=== PATIENT | male | born 1950 | race Caucasian/White ===

== ENCOUNTER 2019-11-03 19:15 | Emergency (ER) | payer MEDICARE, OTHER ==
[~2019-11-03] VITALS: Ht 172.7 cm; Wt 72.6 kg
[2019-11-03 19:27] VITALS: BP 140/81
[2019-11-03] MEDS ORDERED: NS 1000ML 1,000 ML IV STA ×2 (19:35→20:37)
--- NOTE | 2019-11-03 19:37 | ER.PDOC ---
General Chief Complaint: General Complaint Stated Complaint: CHEST PAIN Time seen by MD: 19:30 Source: patient, family Exam Limitations: intoxication History of Present Illness Initial Comments Patient states he had sharp midsubsternal CP about 1 hour ago. He has been drinking heavily and crying persistently x 2 hours. He states he wants to but adamantly denies any intent to harm himself. When asked directly if he would kill himself, he looked shocked and declared vehemently, "NO!" Timing/Duration: this afternoon, this evening Intent: Wants to escape (wants to , but denies any intent to kill or harm himself) Associated Symptoms: Depressed (longstanding history of depression) Allergies: Coded Allergies: No Known Allergies (Unverified , 11/03/19) Home Meds Reported Medications Levothyroxine Sodium (LEVOTHYROXINE SODIUM) 50 Mcg Tablet, 1 TAB PO DAILY, #30 TAB 5 Refills 11/03/19 Venlafaxine Hcl (EFFEXOR XR) 150 Mg Cap.er.24h, 150 MG PO QID, CAPSULE 11/03/19 Esomeprazole Magnesium (NEXIUM) 40 Mg Capsule.dr, 1 CAP PO DAILY, #30 CAP 5 Refills 11/03/19 Celecoxib (CELEBREX) 200 Mg Capsule, 1 CAP PO DAILY, #30 CAP 2 Refills 11/03/19 Valsartan/Hydrochlorothiazide (DIOVAN HCT 320-12.5 MG TAB) 1 Each Tablet, 1 TAB PO DAILY, #90 TAB 1 Refill 11/03/19 Ezetimibe/Simvastatin (VYTORIN 10-40 MG TABLET) 1 Each Tablet, 1 TAB PO QD for 30 Days, #30 TAB 0 Refills 11/03/19 Amlodipine Besylate (NORVASC) 5 Mg Tablet, 1 TAB PO DAILY, #30 TAB 5 Refills 11/03/19 Past Medical History Medical History: other (depression) Review of Systems Constitutional: no symptoms reported EENTM: no symptoms reported Respiratory: no symptoms reported Cardiovascular: no symptoms reported Gastrointestinal: no symptoms reported Musculoskeletal: no symptoms reported Skin: no symptoms reported Psychiatric/Neurological: depressed Physical Exam General Appearance: No acute distress, Alert (appears acutely intoxicated) Respiratory: lungs clear, normal breath sounds, no respiratory distress, no accessory muscle use Cardiovascular: Regular Rate, Rhythm Gastrointestinal: Normal Bowel Sounds, Non Tender Neurological/Psychiatric: Alert, Other (tearful, appears acutely intoxicated) Behavior/Eye Contact/Speech: Cooperative, Good Eye Contact Thoughts/Hallucinations: Normal Thought Pattern, No Apparent Hallucination Skin: Normal Color, Warm/Dry Results/Orders Results/Orders Orders - GONZÁLEZ OTTO DO Cbc With Auto Diff (11/03/19 19:35) Comprehensive Metabolic Panel (11/03/19 19:35) Creatine Kinase (11/03/19 19:35) Creatine Kinase Mb (11/03/19 19:35) Troponin I (11/03/19 19:35) Probnp B-Type [employer] (11/03/19 19:35) PT (11/03/19 19:35) Partial Thromboplastin Time. (11/03/19 19:35) Xr Chest 1v (11/03/19 19:35) Ekg-Routine (11/03/19 19:35) Saline Lock (11/03/19 19:35) Urinalysis (11/03/19 19:35) Alcohol(Ml) (11/03/19 19:35) Drug Scrn Med W Confirmation (11/03/19 19:35) 0.9 % Sodium Chloride (Ns 1000ml) (11/03/19 19:35) 0.9 % Sodium Chloride (Ns 1000ml) (11/03/19 20:37) Vital Signs Date Time Temp Pulse Resp B/P (MAP) Pulse Ox O2 Delivery O2 Flow Rate FiO2 11/03/19 20:29 98.4 86 18 128/65 (86) 97 Room Air 11/03/19 19:27 98.4 89 18 140/81 (100) 94 Room Air 11/03/19 19:27 98.4 89 18 11/03/19 19:27 98.4 89 18 94 Administered Medications Medications (Trade) Dose Ordered Sig/Hawa Route PRN Reason Start Time Stop Time Status Last Admin Dose Admin Sodium Chloride 1,000 ml @ 1,200 mls/hr Q50M STAT IV 11/03/19 19:35 11/03/19 20:24 UNV 11/03/19 19:45 1,200 MLS/HR Sodium Chloride 1,000 ml @ 1,200 mls/hr Q50M STAT IV 11/03/19 20:37 11/03/19 21:27 DC 11/03/19 20:43 1,200 MLS/HR Laboratory Tests Test 11/03/19 19:30 11/03/19 21:09 White Blood Count 7.6 10^3/uL (4.5-11.0) Red Blood Count 4.55 10^6/uL (4.50-5.90) Hemoglobin 14.2 g/dL (13.9-16.3) Hematocrit 41.7 % (37.0-53.0) Mean Corpuscular Volume 91.6 fL (78-100) Mean Corpuscular Hemoglobin 31.2 pg (26-34) Mean Corpuscular Hemoglobin Concent 34.1 g/dL (33-36.5) Red Cell Distribution Width 12.3 % (11.5-14.5) Platelet Count 256 10^3/uL (150-400) Mean Platelet Volume 10.2 fL (7.8-11.0) Neutrophils (%) (Auto) 73.9 % (41.0-85.0) Lymphocytes (%) (Auto) 20.8 % (24.0-44.0) L Monocytes (%) (Auto) 4.3 % (5.0-12.0) L Neutrophils # (Auto) 5.6 10^3/uL (1.8-7.7) Lymphocytes # (Auto) 1.59 10^3/uL1 (1.0-4.8) Monocytes # (Auto) 0.3 10^3/uL (0.3-0.8) Absolute Immature Granulocyte (auto 0.02 10^3 u/L (0-2) Absolute Eosinophils (auto) 0.0 10^3/uL (0.0-0.2) Immature Granulocytes % 0.30 % (0.00-0.50) Eosinophils % 0.4 % (0.0-5.0) Basophils % 0.3 % (0.0-0.2) H Basophils # 0.0 10^3/uL (0.0-0.1) Prothrombin Time 10.0 SEC (9.3-11.3) Prothrombin Time INR (Non-Therap) 1.0 Activated Partial Thromboplast Time 19.5 SEC (24.67-30.72) Sodium Level 139 mmol/L (132-145) Potassium Level 3.5 mmol/L (3.6-5.2) L Chloride Level 103.0 mmol/L (96-109) Carbon Dioxide Level 21.1 mmol/L (20.0-32) Anion Gap 18.4 Blood Urea Nitrogen 32 mg/dL (7-18) H Creatinine 1.35 mg/dL (0.59-1.40) Estimated GFR () 63.8 (>/=60) Est GFR (CKD-EPI)(Non-Afr [place]) 52.7 (>/=60) BUN/Creatinine Ratio 23.0 Glucose Level 198 mg/dL (70-110) H Calcium Level 8.8 mg/dL (8.4-10.5) Total Bilirubin 0.3 mg/dL (0.2-1.0) Aspartate Amino Transferase (AST) 25 U/L (0-35) Alanine Aminotransferase (ALT) 41 U/L (12-78) Alkaline Phosphatase 72 U/L (50-136) Total Creatine Kinase 149 U/L (39-308) Creatine Kinase MB 3.2 ng/mL (0.5-3.6) Troponin I < 0.02 ng/mL (0.00-0.05) Pro-B-Type Natriuretic Peptide 22 pg/mL (0-125) Total Protein 7.2 g/dL (6.4-8.2) Albumin 4.1 g/dL (3.4-5.0) Globulin 3.1 Serum Alcohol 206 mg/dL (0-50) H Urine Collection Type CCMS Urine Color YELLOW (YELLOW) Urine Appearance CLEAR (CLEAR) Urine Bilirubin NEGATIVE MG/DL (NEGATIVE) Urine Ketones NEGATIVE (NEGATIVE) Urine Specific [place] 1.025 (1.005-1.035) Urine pH 5.5 (5.0-6.0) Urine Protein NEGATIVE (NEGATIVE) Urine Urobilinogen NORMAL (NEGATIVE) Urine Nitrate NEGATIVE (NEGATAIVE) Urine Leukocyte Esterase NEGATIVE (NEGATIVE) Urine Blood NEGATIVE (NEGATIVE) Urine Glucose NORMAL (NEGATIVE) Urine Opiates Screen NEGATIVE (c/o300ng/mL) Urine Methadone Screen NEGATIVE (c/o300ng/mL) Urine Barbiturates Screen NEGATIVE (c/o200ng/mL) Urine Phencyclidine Screen NEGATIVE (c/o 25ng/mL) Ur Amphetamine/Methamphetamine NEGATIVE (ud2819bc/mL) Urine MDMA Screen (Ecstasy) NEGATIVE (c/o300ng/mL) Urine Benzodiazepines Screen NEGATIVE (c/o200ng/mL) Urine Cocaine Metabolite Screen NEGATIVE (c/o300ng/mL) Ur Tetrahydrocannabinol (THC) Scrn NEGATIVE (c/o 50ng/mL) Progress Progress alcohol 206, other labs WAL; patient denies suicidal thoughts or intent EKG/XRAY/CT/US EKG: NSR, no ST T wave changes Departure Time of Disposition: 21:31 Disposition: 01 HOME, SELF-CARE Impression: Primary Impression: Alcohol intoxication Additional Impression: Depression Condition: Improved Patient Instructions: Alcohol Intoxication, Depression, Adult Referrals: PCP,UNKNOWN (PCP) PRIMARY CARE PROVIDER Additional Instructions: Follow up with your psychologist DONN--call tomorrow to report tonight's events. Do not use alcohol--it is a depressant and will make your depression symptoms worse. Duration or Time Spent with Pa: 20 min Problem Qualifiers Primary Impression: Alcohol intoxication Complication of substance-induced condition: uncomplicated Qualified Codes: F10.920 - Alcohol use, unspecified with intoxication, uncomplicated Additional Impression: Depression Depression Type: reactive depression Qualified Codes: F32.9 - Major depressive disorder, single episode, unspecified GONZÁLEZ OTTO DO Nov 03, 2019 19:37
[2019-11-03] MEDS ORDERED: NS 1000ML 1,000 ML ONE ×2 (19:41→20:36)
[2019-11-03 19:46] LABS: BASOPHIL % 0.3 % (0.0-0.2); EOSINOPHIL % 0.4 % (0.0-5.0); LYMPHOCYTES # 1.59 10^3/uL1 (1.0-4.8); LYMPHOCYTES % 20.8 % (24.0-44.0); MEAN CORP HGB 31.2 pg (26-34); MONOCYTES # 0.3 10^3/uL (0.3-0.8); MONOCYTES % 4.3 % (5.0-12.0); NEUTROPHIL # 5.6 10^3/uL (1.8-7.7); NEUTROPHILS % 73.9 % (41.0-85.0); PLATELET COUNT 256 10^3/uL (150-400); RED CELL DISTRIBUTION WIDTH 12.3 % (11.5-14.5)
[2019-11-03] MEDS ORDERED: EZET1TAB35 PO (19:55)
[2019-11-03] MEDS ORDERED: VALS1TAB18 PO (19:55)
[2019-11-03] MEDS ORDERED: ESOM40CA PO (19:55)
[2019-11-03] MEDS ORDERED: CELE200C PO (19:55)
[2019-11-03] MEDS ORDERED: AMLO5TAB4 PO (19:55)
[2019-11-03] MEDS ORDERED: VENL150C PO (19:55)
[2019-11-03] MEDS ORDERED: LEVO50TA6 PO (19:56)
--- NOTE | 2019-11-03 19:59 | NUR ---
[facility] CALLED TO REPORT CRITICAL RESULT OF ALCOHOL LEVEL 206. REPORTED VERBALLY TO DR. OTTO AT THIS TIME.
--- NOTE | 2019-11-03 20:02 | DIREP ---
PROCEDURE:CHEST 1 VIEW COMPARISON:None. INDICATIONS:chest pain FINDINGS: LUNGS/PLEURA:Shallow expansion of the lungs. Eventration of the right hemidiaphragm. The lungs are clear. No airspace consolidation is seen. No pneumonia, heart failure or effusions are seen. No ground-glass infiltrates or interstitial pneumonia is seen. There may be a small calcified granuloma in the left upper lobe measuring about 5 mm in size. There are no previous films for comparison. No pneumothorax, pneumomediastinum, aortic aneurysm or mediastinal widening is seen. VASCULATURE:Normal. Unremarkable pulmonary vasculature. CARDIAC:Normal. No cardiac silhouette abnormality or cardiomegaly. MEDIASTINUM:Normal. No visible mass or adenopathy. BONES:Normal. No fracture or visible bony lesion. OTHER:Negative. CONCLUSION:A small calcified granuloma in the left upper lobe. No active disease. No viral pneumonia or airspace consolidation is seen. Dictated by: Reginald Ybarra MD on 11/03/2019 at 07:59 PM
[2019-11-03 20:10] LABS: ALANINE AMINOTRANSFERASE(ML) 41 U/L (12-78); ALKALINE PHOSPHATASE 72 U/L (50-136); ASPARTATE AMINO TRANSFERASE 25 U/L (0-35); CALCIUM 8.8 mg/dL (8.4-10.5); CARBON DIOXIDE 21.1 mmol/L (20.0-32); GLUCOSE 198 mg/dL (70-110)
[2019-11-03 20:29] VITALS: BP 128/65
[2019-11-03 21:17] LABS: APPEARANCE,URINE CLEAR (CLEAR); BILIRUBIN,URINE NEGATIVE (NEGATIVE); UA COLOR YELLOW (YELLOW); UROBILINOGEN,URINE NORMAL (NEGATIVE)
[2019-11-03 21:39] VITALS: BP 139/68
[2019-11-03] MEDS ORDERED: ATIVAN IV STA (21:40)
[2019-11-03] MEDS ORDERED: ATIVAN ONE (21:41)
--- NOTE | 2019-11-03 21:45 | NUR ---
IV DC'D TIP INTACT, NO BLEEDING
--- NOTE | 2019-11-04 08:43 | PCM.EKG ---
[facility] Test Date: 2019-11-03 Test Time: 19:11:09 Pat Name: CESARIO GIBBS Department: Patient ID: [facility]-[id number] Room: Gender: M [employer]: TG : 1950 Requested By: GONZÁLEZ CRAIG Order Number: [id number] Reading MD: Veronica Craig Measurements Intervals [place] Rate: 91 P: 37 [place]: 163 QRS: -76 QRSD: 120 T: 64 QT: 406 QTc: 500 Interpretive Statements Sinus rhythm Left anterior fascicular block No previous ECG available for comparison Electronically Signed On 11-05-2019 19:20:32 CDT by Veronica Craig Please click the below link to view image of tracing.
== END 2019-11-03 21:46 | disposition home or self-care (01) ==
LOC: ER 19:15
DX: F10.129 Alcohol abuse with intoxication, unspecified (principal); R79.1 Abnormal coagulation profile; F32.9 Major depressive disorder, single episode, unspecified; R07.2 Precordial pain; Y90.7 Blood alcohol level of 200-239 mg/100 ml; Z79.1 Long term (current) use of non-steroidal anti-inflammatories (NSAID); Z79.899 Other long term (current) drug therapy
CPT/HCPCS: 36415; 71045; 80053; 80307; 81002; 82550; 82553; 83880; 84484; 85025; 85610; 85730; 93005; 96374; 99285; J2060; J7030 ×2; 80320